=== PATIENT | female | born 1965 | race Caucasian/White ===

== ENCOUNTER 2016-06-15 16:25 | Emergency (ER) | payer BC ==
[2016-06-15 16:48] VITALS: BP 151/96; PULSE 66; TEMP 97.9; BMI 29.0
--- NOTE | 2016-06-15 18:38 | PDOC ---
History of Present Illness - General Chief Complaint: Pain, Acute Stated Complaint: left knee pain Time Seen by Provider: 06/15/16 18:20 - History of Present Illness Initial Comments: 06/15/16 18:32 50-year-old female with a history of chronic knee problems, and she is been followed by Dr. nicole Today she was walking, and stubbed her foot, but then she torqued her knee, and is now having severe left knee pain She did not fall or sustain direct trauma to the knee She states that it hurts when she tries to weight-bear and feels like it's going to give out She denies any foot or ankle pain, or calf pain She states she did not fall, but simply lost her balance and torqued her knee She denies any other injury Past History - Past Medical History Allergies/Adverse Reactions: Allergies Allergy/AdvReac Type Severity Reaction Status Date / Time nut - unspecified [nut] Allergy Severe Verified 06/15/16 16:28 shellfish derived Allergy Severe Verified 06/15/16 16:28 esomeprazole magnesium Allergy Mild Verified 06/15/16 16:27 [From Nexium] Home Medications: Ambulatory Orders Hydrochlorothiazide [Hctz -] 12.5 mg PO DAILY 06/15/16 HTN: Yes - Immunization History Immunization Up to Date: Yes - Psycho/Social/Smoking Cessation Hx Anxiety: No Suicidal Ideation: No Smoking History: Never smoked Have you smoked in the past 12 months: No Information on smoking cessation initiated: No Hx Alcohol Use: Yes (social) Drug/Substance Use Hx: No Substance Use Type: Alcohol *Physical Exam - Vital Signs Last Vital Signs Temp Pulse Resp BP Pulse Ox 97.9 F 66 12 151/96 100 06/15/16 16:26 06/15/16 16:26 06/15/16 16:26 06/15/16 16:26 06/15/16 16:26 - Physical Exam Comments: 06/15/16 18:37 Physical exam Last Vital Signs Temp Pulse Resp BP Pulse Ox 97.9 F 66 12 151/96 100 06/15/16 16:26 06/15/16 16:26 06/15/16 16:26 06/15/16 16:26 06/15/16 16:26 Impression is alert and ambulatory and answering questions Head is normocephalic and atraumatic Left lower extremity- There is full range of motion of the left hip and left ankle The toes are warm with intact sensation and good capillary refill Left knee-there is tender passive range of motion, with diffuse tenderness and without point tenderness The quad and patellar tendons seem intact, and patient is able to almost fully extend the knee There is no point tenderness on the patella There is no tenderness in the popliteal fossa There is negative anterior draw sign The cruciates and collaterals seem intact There is no calf tenderness ED Treatment Course - RADIOLOGY Radiology Studies Ordered: Category Date Time Status KNEE 3 POS-LEFT [RAD] Stat Radiology 06/15/16 18:21 Ordered Medical Decision Making - Medical Decision Making 06/15/16 19:01 Left knee series as read by me-MARSHALL Impression-internal derangement of left knee Knee immobilizer, crutches, orthopedics follow-up MADELAINE 06/15/16 19:06 *DC/Admit/Observation/Transfer Diagnosis at time of Disposition: Internal derangement of left knee - Discharge Dispostion Disposition: HOME Condition at time of disposition: Stable - Referrals Referrals: Nathan Nicole MD [Staff Physician] - - Patient Instructions Printed Discharge Instructions: How to Use Crutches, How to Use a Knee Immobilizer Additional Instructions: Knee immobilizer and crutches, with minimal weightbearing Tylenol or Motrin for pain Please call Dr. nicole tomorrow to be seen MADELAINE Followup with your primary care physician in 24-48 hours Return immediately if you worsen in any way The x-ray reading is a preliminary reading, if there is any change when the radiologist reads the x-rays you will be called
[2016-06-15] MEDS ORDERED: IBUPROFEN 600 MG TABLET (FP) PO ONE ×2 (19:02→19:15)
== END 2016-06-15 19:19 | disposition home or self-care (01) ==
LOC: FER 16:25
PROC: 2W3RX1Z Immobilization of Left Lower Leg using Splint (ICD-10-PCS; principal; 2016-06-15)
DX: M23.92 Unspecified internal derangement of left knee (principal); I10 Essential (primary) hypertension; X58.XXXA Exposure to other specified factors, initial encounter; Y93.01 Activity, walking, marching and hiking; Y92.9 Unspecified place or not applicable
CPT/HCPCS: 73562-TC-LT; 99283-25